=== PATIENT | male | born 1990 | race Caucasian/White ===

== ENCOUNTER 2022-04-21 23:57 | Emergency (ER) | payer MEDICAID ==
[~2022-04-21] VITALS: Ht 177.8 cm; Wt 81.6 kg
[2022-04-21 23:57] VITALS: BP 127/65
--- NOTE | 2022-04-21 23:57 | NUR ---
PT GENEVIEVE ALS, AWAITING BED BY AMBULANCE BAY
[2022-04-22] MEDS ORDERED: NACL 0.9% 1,000 ML IV ONE (00:30)
--- NOTE | 2022-04-22 00:43 | NUR ---
PT GENEVIEVE ALS, TAKEN TO BED 7
--- NOTE | 2022-04-22 02:48 | NUR ---
PT ASLEEP RESP EVEN AND UNLABORED. PENDING DISPO. PT FAMILY MEMBER TO CRUISE STAFF MEMBER PT WHEN D/C
--- NOTE | 2022-04-22 03:00 | NUR ---
[employer] DISPATCH CALLED TO NOTIFY OF PT DISPO
--- NOTE | 2022-04-22 03:20 | NUR ---
IV removed, catheter intact and site benign. Applied folded 4x4 gauze and tape to stop bleeding.
--- NOTE | 2022-04-22 03:21 | NUR ---
[facility] MENENDEZ TAKING PT INTO CUSTODY ON [address]. PT IS MED CLEAR FOR DISPO
[2022-04-22 03:22] VITALS: BP 118/74
--- NOTE | 2022-04-22 03:22 | NUR ---
Patient discharged with v/s stable. Written and verbal after care instructions given and explained. Patient verbalized understanding. Police with in custody. All questions addressed prior to discharge. Advised to follow up with [employer]D.
== END 2022-04-22 03:22 ==
LOC: MED 23:57
DX: R41.82 Altered mental status, unspecified (principal)
CPT/HCPCS: 96360; 99283; J7030

== ENCOUNTER 2022-04-22 04:40 | Emergency (ER) | payer MEDICAID ==
[~2022-04-22] VITALS: Ht 185.4 cm; Wt 86.2 kg
--- NOTE | 2022-04-22 04:40 | NUR ---
TIKA MENENDEZ TO CHAIR
[2022-04-22 04:42] VITALS: BP 139/84
--- NOTE | 2022-04-22 05:05 | NUR ---
PATIENT RETURNED FROM CT VIA W/C TO [facility]
[2022-04-22 05:16] VITALS: BP 139/84
--- NOTE | 2022-04-22 05:35 | NUR ---
NO NURSING INTERVENTIONS DONE AT THIS TIME. PATIENT CLEARED AND DISCHARGED BY [facility]UNNY LIRA.
== END 2022-04-22 05:38 ==
LOC: MED 04:40
DX: S09.90XA Unspecified injury of head, initial encounter (principal); V49.88XA Car occupant (driver) (passenger) injured in other specified transport accidents, initial encounter; Y93.89 Activity, other specified; Y92.89 Other specified places as the place of occurrence of the external cause; Y99.8 Other external cause status
CPT/HCPCS: 70450; 99284